=== PATIENT | male | born 1955 | race Caucasian/White ===

== ENCOUNTER 2024-08-01 08:33 | Inpatient (IN) ==
[2024-08-01] MEDS: IPRATROPIUM/ALBUTEROL 3 ML AMPUL.NEB NEB ONE ×2 (09:02)
[2024-08-01] MEDS: methylPREDNISolone SOD SUCC 125 MG/2 ML VIAL IV ONE (09:11)
[2024-08-01 09:14] LABS: Basophils # (Auto) 0 K/mcL (0.00-0.30); Basophils % (Auto) 0 % (0.0-2.0); Eosinophils # (Auto) 0.02 K/mcL (0.00-0.70); Eosinophils % (Auto) 0.1 % (0.0-7.0); Hematocrit 40.3 % (40.1-51.0); Hemoglobin 12.9 g/dL (13.7-17.5); Lymphocytes # (Auto) 1.82 K/mcL (1.50-4.80); Lymphocytes % (Auto) 13.1 % (15.5-49.0); Mean Cell Volume 99.3 fL (80.0-100.0); Mean Platelet Volume 10.2 fL (8.8-12.5); Monocytes # (Auto) 1.53 K/mcL (0.10-0.90); Neutrophils % (Auto) 74.4 % (38.0-78.0); Platelet Count 274 K/mcL (140-440); RBC 4.06 M/mcL (4.63-6.08); Red Cell Distribution Width 14.4 % (11.5-14.5); WBC 13.9 K/mcL (4.5-11.0)
[2024-08-01 09:20] LABS: INR 1.2 (0.9-1.1)
[2024-08-01] MEDS: ASPIRIN 81 MG TAB.CHEW CHEWED ONE (09:27)
[2024-08-01 09:33] LABS: ALT/SGPT 26 U/L (<40); AST/SGOT 21 U/L (<40); Albumin 3.9 gm/dL (3.2-5.2); Albumin/Globulin Ratio 1.8 (1.0-2.3); Alkaline Phosphatase 84 U/L (39-117); Bilirubin,Total 0.5 mg/dL (0.1-1.0); Blood Urea Nitrogen 12 mg/dL (8-23); Carbon Dioxide 28 mmol/L (22-30); Chloride 102 mmol/L (96-108); Globulin 2.2 gm/dL (2.2-3.7); Glomerular Filtration Rate 87; Glucose 126 mg/dL (70-105); Potassium 3.9 mmol/L (3.3-5.1); Sodium 143 mmol/L (133-145)
[2024-08-01] MEDS: FUROSEMIDE 20 MG/2 ML VIAL IV ONE (09:45)
[2024-08-01] MEDS: LEVOFLOXACIN 750 MG/150 ML BAG IV ONE (13:12)
[2024-08-01 13:54] LABS: Lymphocytes % 17 % (15-49); Monocytes % (Manual) 10 % (1-12); Platelet Estimate NORMAL (Normal); RBC Morphology NORMAL (Normal); Segmented Neutrophils % 73 % (38-78)
[2024-08-01] MEDS ORDERED: METOPROLOL TARTRATE 5 MG/5 ML VIAL IV PRN (15:31)
[2024-08-01] MEDS ORDERED: MAGNESIUM SULFATE 2 GM/50 ML BAG IV PRN (15:31)
[2024-08-01] MEDS ORDERED: METOCLOPRAMIDE 10 MG/2 ML VIAL IV PRN (15:31)
[2024-08-01] MEDS ORDERED: ONDANSETRON 4 MG/2 ML VIAL IV PRN (15:31)
[2024-08-01] MEDS ORDERED: POTASSIUM CHLORIDE 20 MEQ TABLET PO PRN ×2 (15:31)
[2024-08-01] MEDS ORDERED: IPRATROPIUM/ALBUTEROL 3 ML AMPUL.NEB NEB PRN (15:31)
[2024-08-01] MEDS ORDERED: POTASSIUM CHLORIDE 40 MEQ in DEXTROSE 5% IN WATER 500 ML IV PRN (15:31)
[2024-08-01] MEDS ORDERED: POLYETHYLENE GLYCOL 3350 17 GM PACKET PO PRN (15:31)
[2024-08-01] MEDS ORDERED: SENNOSIDES 1 TABLET PO PRN (15:31)
[2024-08-01] MEDS ORDERED: AZITHROMYCIN 500 MG in DEXTROSE 5% IN WATER 250 ML IV SCH (16:00)
[2024-08-01] MEDS: FUROSEMIDE 40 MG/4 ML VIAL IV SCH (16:48)
[2024-08-01] MEDS: AZITHROMYCIN 500 MG in 0.9 % SODIUM CHLORIDE 250 ML IV SCH (16:50)
[2024-08-01] MEDS: OMEPRAZOLE 20 MG CAPSULE PO SCH (17:24)
[2024-08-01 17:27] LABS: Estimated Average Glucose(eAG) 137 mg/dL; Hemoglobin A1C 6.4 % Hgb (4.0-6.0)
[2024-08-01] MEDS ORDERED: DEXTROSE 50% 50 ML VIAL IV PRN (17:56)
[2024-08-01] MEDS ORDERED: DEXTROSE 31 GM ORAL.SUSP PO PRN (17:56)
[2024-08-01] MEDS: IPRATROPIUM/ALBUTEROL 3 ML AMPUL.NEB NEB SCH (19:41)
[2024-08-01] MEDS: INSULIN LISPRO 1 UNIT/0.01 ML UNIT SQ SCH (21:07)
[2024-08-01] MEDS: METOPROLOL TARTRATE 50 MG TABLET PO SCH (21:08)
[2024-08-01] MEDS: DOCUSATE SODIUM 100 MG CAPSULE PO SCH (21:08)
[2024-08-01] MEDS: RIVAROXABAN 20 MG TABLET PO SCH (21:08)
[2024-08-01] MEDS: ACETAMINOPHEN 325 MG TABLET PO PRN (21:09)
[2024-08-01] MEDS: LOSARTAN 50 MG TABLET PO SCH (21:09)
[2024-08-01] MEDS: ATORVASTATIN 20 MG TABLET PO SCH (21:09)
[2024-08-01] MEDS: MOMETASONE INH SCH (21:10)
[2024-08-01] MEDS: 0.9 % SODIUM CHLORIDE 10 ML SYRINGE IV SCH (21:25)
[2024-08-01] MEDS: FLECAINIDE 50 MG TABLET PO SCH (21:31)
[2024-08-01] MEDS: ENALAPRILAT 1.25 MG/ML VIAL IV PRN (22:25)
[2024-08-02 05:57] LABS: Basophils # (Auto) 0.01 K/mcL (0.00-0.30); Basophils % (Auto) 0.1 % (0.0-2.0); Eosinophils # (Auto) 0.04 K/mcL (0.00-0.70); Eosinophils % (Auto) 0.4 % (0.0-7.0); Hematocrit 35.9 % (40.1-51.0); Hemoglobin 11.8 g/dL (13.7-17.5); Lymphocytes # (Auto) 0.75 K/mcL (1.50-4.80); Lymphocytes % (Auto) 8.3 % (15.5-49.0); Mean Cell Volume 96.5 fL (80.0-100.0); Mean Corpuscular HGB Conc 32.9 g/dL (31.0-36.0); Mean Platelet Volume 10.8 fL (8.8-12.5); Monocytes # (Auto) 0.61 K/mcL (0.10-0.90); Monocytes % (Auto) 6.7 % (1.0-12.0); Neutrophils % (Auto) 83.2 % (38.0-78.0); Platelet Count 231 K/mcL (140-440); RBC 3.72 M/mcL (4.63-6.08); Red Cell Distribution Width 14.1 % (11.5-14.5); WBC 9.1 K/mcL (4.5-11.0)
[2024-08-02 06:31] LABS: ALT/SGPT 20 U/L (<40); AST/SGOT 15 U/L (<40); Albumin 3.4 gm/dL (3.2-5.2); Albumin/Globulin Ratio 1.5 (1.0-2.3); Alkaline Phosphatase 74 U/L (39-117); Bilirubin,Direct 0.3 mg/dL (<0.3); Bilirubin,Total 0.5 mg/dL (0.1-1.0); Blood Urea Nitrogen 18 mg/dL (8-23); Calcium 8.5 mg/dL (8.6-10.4); Carbon Dioxide 29 mmol/L (22-30); Chloride 97 mmol/L (96-108); Globulin 2.3 gm/dL (2.2-3.7); Glomerular Filtration Rate 87; Glucose 199 mg/dL (70-105); Lactate Dehydrogenase 203 U/L (135-225); Phosphorous 3.6 mg/dL (2.5-4.5); Potassium 3.8 mmol/L (3.3-5.1); Sodium 138 mmol/L (133-145); Triglycerides 58 mg/dL (<150); Uric Acid 2.5 mg/dL (2.5-8.0)
[2024-08-02] MEDS: methylPREDNISolone SOD SUCC 125 MG/2 ML VIAL IV SCH (08:42)
[2024-08-02] MEDS: DILTIAZEM 240 MG CAP.XL.24H PO SCH (08:44)
[2024-08-02] MEDS: AZITHROMYCIN 250 MG TABLET PO SCH (08:44)
[2024-08-02] MEDS ORDERED: RIVAROXABAN 20 MG TABLET PO SCH (09:00)
[2024-08-02] MEDS ORDERED: ATORVASTATIN 20 MG TABLET PO SCH (09:00)
[2024-08-02] MEDS: Tiotropium-Olodaterol [Stiolto Respimat] 2.5-2.5 INH SCH (15:06)
[2024-08-03] MEDS: FLU VACC TS2024-25(65YR UP)/PF 180 MCG/0.5 ML SYRINGE IM ONE (08:41)
[2024-08-03 08:59] VITALS: TEMP 97; O2SAT 97
== END 2024-08-03 10:10 | disposition home or self-care (01) | DRG 291 ==
LOC: ED 08:33 → ICU 15:26
PROVIDERS: ADMIT Internal Medicine; ATTEND Internal Medicine